=== PATIENT | male | born 1985 | race Caucasian/White ===

== ENCOUNTER → 2017-06-02 | Outpatient (CLI) | payer OTHER ==
[~2017-06-02] MED LIST: AUG875 PO; DIVA-1 PO; MULT1CAP59 PO; PARO10TA78 PO; SERT25TA87 PO
[2017-06-02 09:47] LABS: PLATELET COUNT, AUTOMATED 190 K/uL (150-450)
[2017-06-02 10:51] LABS: LDL CHOLESTEROL 93 mg/dl
== END ==
LOC: LAB 09:26
PROVIDERS: ATTEND Registered Nurse Psychiatric/Mental Health
DX: Z51.81 Encounter for therapeutic drug level monitoring (principal); Z79.899 Other long term (current) drug therapy
CPT/HCPCS: 36415; 80164; 82040; 82247; 82310; 82374; 82435; 82465; 82565; 82947; 83718; 84075; 84132; 84155; 84295; 84450; 84460; 84478; 84520; 85025